=== PATIENT | female | born 1995 | race African-American/Black ===

== ENCOUNTER 2025-01-14 19:05 | Emergency (ER) | payer OTHER, SELFPAY ==
[2025-01-14 19:14] VITALS: BP 122/85; PULSE 91; RESP 16; TEMP 36.8; O2SAT 100
--- NOTE | 2025-01-14 19:38 | ED_ITS ---
HPI - Fall General Chief Complaint: Fall Stated Complaint: fall patient presents to the [facility] with complaints of a fall while roller- skating about 1 week ago. Patient reports slipping and falling on to her buttocks in hands. Patient noted she is having some pain to upper back and feels like this area swollen. Patient reports using warm baths and ibuprofen with some relief of symptoms but she is tired of taking these medications. Patient does report a history of lupus and feels like this is contributing to some of the increased pain. Denies hitting head, no loss of consciousness denies any joint pain or lower back pain. Patient does also feel like she can feel her heart beating but denies pain or shortness of breath. Related Data Allergies Allergy/AdvReac Type Severity Reaction Status Date / Time No Known Allergies Allergy Verified 01/14/25 19:41 Review of Systems Constitutional: Constitutional: Reports as per HPI, Denies chills, Denies fatigue, Denies fever(s) and Denies weakness Eyes: Eyes: Reports no additional eye complaints ENT: Reports as per HPI Cardiovascular: Cardiovascular: Reports as per HPI, Denies chest pain, Denies rapid heart rate, Denies radiating jaw, neck or arm pain and Denies slow heart rate Comments: can feel heart beating Respiratory: Respiratory: Reports as per HPI, Denies chest congestion, Denies cough, Denies dyspnea and Denies wheezing Gastrointestinal: Gastrointestinal: Reports no additional gastrointestinal complaints Genitourinary: Genitourinary: Reports no additional female genitourinary complaints Musculoskeletal: Musculoskeletal: Reports as per HPI, Reports back pain (upper back ), Reports myalgias, Denies joint swelling and Reports muscle cramps Integumentary/Breasts: Skin/Breast: Reports as per HPI, Denies erythema, Denies rash and Denies skin ulcer Comments: feels like upper back is swollen Neurologic: Reports as per HPI, Denies vertigo, Denies dizziness, Denies syncope, Denies headache(s), Denies numbness and Denies weakness Psychiatric: Psychiatric: Reports no additional psychiatric complaints Endocrine: Endocrine: Reports no additional endocrine complaints Hematologic/Lymphatic: Hematologic/Lymphatic: Reports no additional hematologic/lymphatic complaints Allergic/Immunologic: Allergic/Immunologic: Reports no additional allergic/immunologic complaints Exam Const: General: healthy appearing and no acute distress Nutritional Appearance: well nourished Orientation/consciousness: patient oriented x3 Limitations: no limitations Neck: Neck: normal visual inspection and no lymphadenopathy Other: Cervical spine cervical spine nontender mild bilateral trapezius tenderness. No erythema, edema, or rash noted. Full range of motion of neck and head Chest: Chest palpation & inspection: normal inspection of the chest Resp: Effort & Inspection: normal respiratory effort Auscultation: clear to auscultation bilaterally Cardio: Rate: regular rate Rhythm: regular rhythm Heart sounds: no murmurs Skin: General skin exam: normal color Rashes: no rashes Wounds: no wounds Neuro: General: patient oriented x3, moves all extremities and no meningeal signs Speech: normal speech Gait exam (Neuro): Normal gait present Extrem: General: normal to inspection, no clubbing, cyanosis or edema and no pedal edema Psych: Mental Status: mental status grossly normal Affect: normal affect Attitude: cooperative Course Course Level of Care: Express Care Visit Vital Signs Vital signs: Vital Signs Temperature 98.2 F 01/14/25 19:14 Pulse Rate 91 01/14/25 19:14 Respiratory Rate 16 01/14/25 19:14 Blood Pressure 122/85 01/14/25 19:14 Pulse Oximetry 100 01/14/25 19:14 Oxygen Delivery Room Air 01/14/25 19:14 Temperature 98.2 F 01/14/25 19:14 Pulse Rate 91 01/14/25 19:14 Respiratory Rate 16 01/14/25 19:14 Blood Pressure 122/85 01/14/25 19:14 Pulse Oximetry 100 01/14/25 19:14 Oxygen Delivery Room Air 01/14/25 19:14 MDM - Fall MDM Narrative Medical decision making narrative: patient denies any specific problems with range of motion feels like this is muscular nature an inflammatory related to her lupus, declines any x-rays while here Express Care today. Spoke with patient about steroid treatment with muscle relaxers. Patient can continue Tylenol and lidocaine patches she has been using as well as warm baths and gentle stretching. spoke about the field heart beating complaints denies any chest pain or shortness of breath. Spoke with patient about the symptoms and when explained palpitations she denies feeling anything wrong with her heart or anything different. The patient was evaluated by myself in the express care. History is obtained from patient who is an independent historian and physical exam was performed. Available medical records were reviewed at this time. Exam findings show no acute concerns or changes; patient is non-toxic appearing and is in no distress. Patient is appropriate for outpatient treatment and follow-up. I have evaluated and discussed social determinants of health with the patient that could potentially impact subsequent diagnosis and treatment plans. Differential diagnosis and treatment plan were discussed with the patient. Patient agrees with discussion and after shared medical decision making agrees with plan of care. All questions were answered to the patient's satisfaction. Differential Diagnosis Differential diagnosis: Likely fracture of wrist, compression fracture, concussion with loss of consciousness and concussion without loss of cons ciousness Medical Records Attestation: I reviewed the patient's medical records. Discharge Plan Discharge Clinical Impression: Muscle strain of upper back, Fall from roller skates Patient Disposition: Home Condition: Stable Instructions: Antibiotic Form, Cervical Strain (ED), Lower Back Exercises (ED) Additional Instructions: This is likely muscular in nature recommended resting for 2 days then begin applying heat for 20 minutes then gentle range of motion or massaged then ice for 20 minute several times per day. may use the sling as needed to get extra support take the steroids as directed until gone. These can make some people feel slightly jittery or have trouble sleeping. If you feel this you may stop taking these medications and moved back to your ibuprofen May use the muscle relaxers as needed this can make you drowsy do not drive, drink alcohol or operate heavy machinery while taking this medication. Follow-up with primary care physician within the next week if symptoms not improved if you notice any significant numbness, tingling, weakness, or neck pain follow-up with emergency room for immediate evaluation. Patient Language: Nepali Prescriptions: New methocarbamol 750 mg tablet 750 mg PO TID Qty: 30 0RF methylprednisolone [Medrol (Michael)] 4 mg tablets,dose pack See Rx Instructions .ROUTE .COMPLEX Qty: 21 0RF Rx Instructions: for 6 days Follow-up/Referrals: UNKNOWN,DOCTOR [Primary Care Provider] Time of Disposition: 19:43
== END 2025-01-14 19:55 | disposition home or self-care (01) ==
PROVIDERS: Emergency Provider Nurse Practitioner Family
DX: S29.012A Strain of muscle and tendon of back wall of thorax, initial encounter (principal); W18.39XA Other fall on same level, initial encounter; Y93.51 Activity, roller skating (inline) and skateboarding
CPT/HCPCS: 99213; G0463